=== PATIENT | female | born 1950 | race Caucasian/White ===

== ENCOUNTER → 2021-08-18 | Outpatient (CLI) | payer MEDICARE ==
--- NOTE | 2021-08-19 16:22 | RAD ---
MG BILAT SCREEN+MARLEN 08/18/2021 10:10 AM INDICATION: Asymptomatic screening mammogram. COMPARISON: 08/04/2019, 08/02/2018 TECHNIQUE: 3D tomosynthesis was performed in CC and MLO projections. 2D views were obtained from the 3D data. CAD was utilized as needed. FINDINGS: Breast density: Category B: There are scattered areas of fibroglandular density. Right breast: There are no suspicious microcalcifications, masses or areas of architectural distortio n. Left breast: There are no suspicious microcalcifications, masses or areas of architectural distortion . Bilateral mammogram is compared to prior examinations appears unchanged. IMPRESSION: Negative bilateral mammogram. BI-RADS category: 1; Negative Recommendations: Recommend annual screening mammography in one year. Electronically signed by: Jia Sylvester MD (08/19/2021 4:19 PM) [id number]
== END ==
LOC: MAMMO 09:54
PROVIDERS: ATTEND Family Medicine
DX: Z12.31 Encounter for screening mammogram for malignant neoplasm of breast (principal)
CPT/HCPCS: 77063; 77067

== ENCOUNTER 2022-03-15 11:21 | Emergency (ER) | payer MEDICARE ==
[~2022-03-15] VITALS: Ht 160 cm; Wt 95.0 kg
[2022-03-15 12:16] LABS: BASO # 0.1 x10^3/uL (0.0-0.2); BASO % 1 % (0-3); EOS % 1 % (0-3); HEMATOCRIT 45.7 % (36.0-47.0); HEMOGLOBIN 15.5 g/dL (12.0-15.5); LYMPH % 25 % (24-48); MEAN CORPUSCULAR HEMOGLOBIN 31 pg (25-35); MEAN CORPUSCULAR HGB CONC 34 g/dL (31-37); MEAN CORPUSCULAR VOLUME 91 fL (79-100); MONO # 0.6 x10^3/uL (0.0-1.1); MONO % 7 % (0-9); NEUT # 5.4 x10^3uL (1.8-7.7); NEUT % 67 % (31-73); PLATELET COUNT 243 x10^3/uL (140-400); RED BLOOD COUNT 5.03 x10^6/uL (3.50-5.40); RED CELL DISTRIBUTION WIDTH 14.1 % (11.5-14.5); WHITE BLOOD COUNT 8.1 x10^3/uL (4.0-11.0)
--- NOTE | 2022-03-15 12:38 | PHYS DOC ---
Past History Additional Past Medical Histor: ADHD Past Surgical History: Appendectomy, Cancer Surgery, Hysterectomy, Other Additional Past Surgical Histo: colectomy X 2, hernia repair, lysis of adhesions General Adult EDM: Chief Complaint: HYPERTENSION HPI: HPI: Patient is a 71-year-old female with high blood pressure. Patient states her blood pressure at home was 176/108. She called her primary care physician and was sent to the emergency department for evaluation. The patient does not have a history of hypertension and is not on any high blood pressure medications. She denies any chest pain, shortness of breath, confusion, visual changes or decrease in urinary output. She does have a headache which is frontal and has been intermittent for about a month. No fever or neck stiffness. No nausea, vomiting or abdominal symptoms. Review of Systems: Review of Systems: Constitutional: Denies fever Eyes: Denies change in visual acuity or eye pain HENT: Denies sore throat Respiratory: Denies shortness of breath Cardiovascular: Denies chest pain GI: Denies abd pain : Denies dysuria Musculoskeletal: Denies back or extremity injury Integument: Denies rash or skin lesions Neurologic: Reports headache, denies focal weakness or sensory changes All other systems were reviewed and found to be within normal limits, except as documented in this note. Allergies: Allergies: Allergies Coded Allergies Type Severity Reaction Last Updated Verified Sulfa (Sulfonamide Antibiotics) Allergy Unknown Hives 03/15/22 Yes atorvastatin Allergy Unknown 03/15/22 Yes fluconazole Allergy Unknown Hives 03/15/22 Yes hydrocodone Allergy Unknown Hives 03/15/22 Yes iodine Allergy Unknown Nausea and Vomiting 03/15/22 Yes metformin Allergy Unknown Diarrhea 03/15/22 Yes nalbuphine Allergy Unknown Hives 03/15/22 Yes Uncoded Allergies Type Severity Reaction Last Updated Verified SHELLFISH Allergy Unknown Nausea and Vomiting 03/15/22 Physical Exam: PE: Constitutional: Well developed, well nourished, no acute distress, non-toxic appearance. HENT: Normocephalic, atraumatic, bilateral external ears normal, mucosa moist, nose normal. Eyes: EOMI, conjunctiva normal, no discharge. Neck: Normal range of motion, supple, no stridor, no meningeal signs. Cardiovascular: Regular rate and rhythm Lungs & Thorax: Bilateral breath sounds clear to auscultation Abdomen: Soft, no tenderness or obvious masses Skin: Warm, dry, no erythema, no rash. Extremities: No tenderness, no cyanosis, no clubbing, ROM intact, no edema. Neurologic: Alert and oriented, normal motor function, normal sensory function, no focal deficits noted. Psychologic: Affect normal, judgement normal, mood normal. Current Patient Data: Labs: Laboratory Tests Test 03/15/22 11:55 White Blood Count 8.1 x10^3/uL (4.0-11.0) Red Blood Count 5.03 x10^6/uL (3.50-5.40) Hemoglobin 15.5 g/dL (12.0-15.5) Hematocrit 45.7 % (36.0-47.0) Mean Corpuscular Volume 91 fL (79-100) Mean Corpuscular Hemoglobin 31 pg (25-35) Mean Corpuscular Hemoglobin Concent 34 g/dL (31-37) Red Cell Distribution Width 14.1 % (11.5-14.5) Platelet Count 243 x10^3/uL (140-400) Neutrophils (%) (Auto) 67 % (31-73) Lymphocytes (%) (Auto) 25 % (24-48) Monocytes (%) (Auto) 7 % (0-9) Eosinophils (%) (Auto) 1 % (0-3) Basophils (%) (Auto) 1 % (0-3) Neutrophils # (Auto) 5.4 x10^3uL (1.8-7.7) Lymphocytes # (Auto) 2.0 x10^3/uL (1.0-4.8) Monocytes # (Auto) 0.6 x10^3/uL (0.0-1.1) Eosinophils # (Auto) 0.0 x10^3/uL (0.0-0.7) Basophils # (Auto) 0.1 x10^3/uL (0.0-0.2) Vital Signs: Vital Signs Date Time Temp Pulse Resp B/P (MAP) Pulse Ox O2 Delivery O2 Flow Rate FiO2 03/15/22 11:30 97.7 70 22 180/91 (120) 96 Room Air EKG: EKG: Twelve-lead EKG demonstrates a sinus rhythm with an overall rate of 69 bpm. WA interval slightly prolonged at 230 ms. QRS and QT corrected are within normal limits. No ST segment elevation or depression. [] Radiology/Procedures: Radiology/Procedures: [] Impressions: PATIENT: RENETTA RODRIGUEZ JACCOUNT: [id number] : 1950 LOCATION: ER AGE: 71 SEX: F EXAM STATUS: REG ER ORD. PHYSICIAN: YULISSA RIVAS MD REASON: HTN PROCEDURE: CHEST AP ONLY Exam Date: 03/15/2022 11:40 AM XR CHEST 1V Indication: Reason: HTN / Spl. Instructions: / History: . FINDINGS/ IMPRESSION: The cardiac silhouette and pulmonary vasculature are within normal limits. There is no focal consolidation, pleural effusion or pneumothorax. The visualized osseous structures are intact. Electronically signed by: Viviana Enamorado MD (03/15/2022 12:38 PM) [id number] DICTATED AND SIGNED BY: VIVIANA ENAMORADO MD DATE: 03/15/22 1235 CC: MIGNON HALLMAN MD; YULISSA RIVAS MD ~ Heart Score: C/O Chest Pain: No Risk Factors: Risk Factors: DM, Current or recent (<one month) smoker, HTN, HLP, family history of CAD, obesity. Risk Scores: Score 0 - 3: 2.5% MACE over next 6 weeks - Discharge Home Score 4 - 6: 20.3% MACE over next 6 weeks - Admit for Clinical Observation Score 7 - 10: 72.7% MACE over next 6 weeks - Early Invasive Strategies Course & Med Decision Making: Course & Med Decision Making Pertinent Labs and Imaging studies reviewed. (See chart for details) [] Is a 71-year-old female with high blood pressure. Further questioning she had taken Ritalin tablet before coming in as well as smokes several cigarettes and drinks and black coffee. Her blood pressures come down to 156 systolic. We will hold off on starting any medications at this time. Labs are unrevealing. She stable for discharge. Dragon Disclaimer: Dragcesar Disclaimer: This electronic medical record was generated, in whole or in part, using a voice recognition dictation system. Departure Departure: Impression: Primary Impression: Transient hypertension Disposition: HOME / SELF CARE / HOMELESS Condition: STABLE Referrals: MIGNON HALLMAN MD (PCP) Patient Instructions: Hypertension YULISSA RIVAS MD Mar 15, 2022 12:38
--- NOTE | 2022-03-15 12:41 | RAD ---
Exam Date: 03/15/2022 11:40 AM XR CHEST 1V Indication: Reason: HTN / Spl. Instructions: / History: . FINDINGS/ IMPRESSION: The cardiac silhouette and pulmonary vasculature are within normal limits. There is no focal consolidation, pleural effusion or pneumothorax. The visualized osseous structures are intact. Electronically signed by: Israel Enamorado MD (03/15/2022 12:38 PM) [id number]
--- NOTE | 2022-03-15 12:41 | EKG ---
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
[2022-03-15 12:48] LABS: CALCIUM 9.8 mg/dL (8.5-10.1); CREATININE 0.9 mg/dL (0.6-1.0); GFR 61.7; POTASSIUM 4.5 mmol/L (3.5-5.1)
[2022-03-15 13:03] LABS: ALBUMIN 3.6 g/dL (3.4-5.0); ALBUMIN/GLOBULIN RATIO 1.2 (1.0-1.7); TOTAL BILIRUBIN 0.3 mg/dL (0.2-1.0); TOTAL PROTEIN 6.5 g/dL (6.4-8.2)
[2022-03-15 13:22] VITALS: BP 166/69
[2022-03-15 14:01] LABS: BACTERIA,URINE FEW /HPF (0-FEW); CLARITY,URINE CLEAR; COLOR,URINE YELLOW; GLUCOSE,URINE NEG (NEG); NITRITE,URINE NEG (NEG); SQUAMOUS EPITHELIAL CELL,UR MOD /LPF; UROBILINOGEN,URINE 0.2 mg/dL (0.2 mg/dL); WBC,URINE OCC /HPF (0-4)
== END 2022-03-15 13:35 | disposition home or self-care (01) ==
LOC: ER 11:21
DX: R03.0 Elevated blood-pressure reading, without diagnosis of hypertension (principal); Z88.2 Allergy status to sulfonamides; Z88.5 Allergy status to narcotic agent; Z88.8 Allergy status to other drugs, medicaments and biological substances
CPT/HCPCS: 36415; 71045; 80053; 81001; 83735; 83880; 84484; 85025; 93005; 99285